=== PATIENT | male | born 2005 | race Caucasian/White ===

== ENCOUNTER 2024-10-10 08:53 | Emergency (ER) | payer BC, SELFPAY ==
[2024-10-10 08:54] VITALS: BP 118/77; PULSE 71; RESP 16; TEMP 36.9; O2SAT 100; BMI 22.3
--- NOTE | 2024-10-10 09:31 | EX.ED.GUMALE ---
HPI History of Present Illness Chief Complaint: Male Pain/Injury Informant: patient Pain Onset: Yesterday Context: Sudden Onset Timing: Continuous Worsened by: Palpation Relieved by: Nothing Narrative Narrative: Patient presents with left testicular pain that began yesterday. Patient describes it as dull and throbbing. Patient states it was there when he woke up yesterday. Patient states it is worse with palpation. Patient states nothing makes it better. Patient denies any urethral discharge or drainage. Patient denies any dysuria, frequency, or hematuria. Patient denies any nausea or vomiting. Patient admits to some mild trauma that occurred this morning. Patient denies any fevers or chills. PFSH PFSH Medical History no medical history no medical history Home Medications ?Medication ?Instructions ?Recorded ?Last Taken ?Type NK 10/10/24 Unknown History Allergy/AdvReac Type Severity Reaction Status Date / Time No Known Allergies Allergy Verified 10/10/24 08:53 Family History no significant family his Surgical History no surgical history no surgical history Social History Smoking Status: Never smoker ROS ROS ED Constitutional Constitutional ED: Denies chills or fever(s) Eyes Eyes: Denies blurry vision or change in vision ENT ENT ED: Denies rhinorrhea or sore throat Cardiovascular Cardiovascular: Denies chest pain or palpitations Respiratory/Chest Respiratory/Chest: Denies cough or dyspnea Gastrointestinal Gastrointestinal: Denies nausea or vomiting Genitourinary Genitourinary ED: Denies dysuria or hematuria Musculoskeletal Musculoskeletal: Reports back pain; Denies neck pain Integumentary Denies abscess or rash Neurologic Neurologic: Denies headache(s) or weakness Allergic/Immunologic Allergic/Immunologic ED: Denies mouth swelling or urticaria EXAM Physical Exam Const Vital Signs: 10/10/24 08:54 10/10/24 10:53 10/10/24 12:00 Temperature 98.5 F Temperature Source Oral Pulse Rate 71 71 73 Respiratory Rate 16 15 15 Blood Pressure 118/77 120/68 116/78 Blood Pressure Mean 90 85 90 Pulse Ox 100 100 100 Oxygen Delivery Method Room Air Positive well nourished and well developed General Appearance ED: well developed and NAD HEENT Reports moist mucous membranes normocephalic and atraumatic Neck supple and no JVD Resp normal respiratory effort and clear to auscultation bilaterally Cardio regular rate and regular rhythm GI non-tender and non-distended Palpation: soft Narrative: There is tenderness to palpation of the left testicle. There is vertical lie. The epididymis is posterior. There is no inguinal hernia palpated. There is no urethral discharge noted. There is no tenderness over the right testicle. Neuro oriented x3, CN's II-XII intact bilaterally, moves all extremities, no focal motor deficits and no sensory deficits noted Sensorium / Orientation: alert Motor Exam: strength 5/5 throughout Psych mental status grossly normal MDM MDM MDM Narrative Medical decision making narrative: Differential diagnosis includes testicular torsion, epididymitis, varicocele, hydrocele, and contusion. Urinalysis will be obtained to assess for urinary tract infection and hematuria. Testicular ultrasound will be obtained to assess for testicular torsion and epididymitis. History & Record Review Additional record(s) reviewed:: No prior records Lab Data Attestation: I reviewed the patient's lab results. Lab results narrative: Urinalysis was reviewed. There is no evidence of urinary tract infection or hematuria. Labs: Laboratory Results - last 24 hr 10/10/24 10:13 Urine Color Yellow Urine Clarity Sl. Cloudy Urine pH 7.0 Ur Specific [place] 1.010 Urine Protein Negative Urine Glucose (UA) Normal Urine Ketones Negative Urine Occult Blood Negative Urine Nitrite Negative Urine Bilirubin Negative Urine Urobilinogen Normal Ur Leukocyte Esterase Negative Urine RBC 0 SEEN Urine WBC 0 SEEN Ur Squamous Epith Cells 0 SEEN Amorphous Sediment 2+ Urine Bacteria 0 SEEN Urine Mucus 0 SEEN Radiography Diagnostic Testing: Clinical Impression(s) from Imaging Studies Testicular Ultrasound 10/10/24 09:48 IMPRESSION: 1. Left scrotal varicocele. 2. No testicular abnormality is seen. Reading Location: [place] [id number] Testicular ultrasound was obtained. Left scrotal varicocele. There is no evidence of testicular torsion. There are no masses noted. There is no evidence of epididymitis. This was interpreted by the radiologist and was also independently reviewed by myself. Treatment and Re-Evaluation Narrative: Patient was advised of this findings. Patient was instructed to wear tight fitting underwear for scrotal support. Patient was instructed to take Tylenol or ibuprofen as needed for pain. Patient was instructed to return if worse in any way. Patient was instructed to follow-up with his primary care physician in 5 to 7 days. Patient understood and was agreeable with the plan. All questions were answered. Discharge Plan Triage Chief Complaint: Male Pain/Injury ED Provider: Ryan Lassiter Dx/Rx/DC Orders Clinical Impression: Left varicocele, Left testicular pain Instructions: Treating Varicocele, What Is a Varicocele Prescriptions: No Action NK Primary Care Provider: Care Physician,No Primary Referrals: Gianna Downing MD [Med Staff - [place] [facility]] - 5-7 Days Care Physician,No Primary [Primary Care Provider] - Print Language: Hungarian Disposition Disposition: Home, Self Care
--- NOTE | 2024-10-10 09:48 | US_ITS ---
PROCEDURE: TESTICULAR WITH ARTERIAL FLOW 10/10/2024 REASON FOR EXAM: LEFT TESTICULAR PAIN TECHNIQUE: TESTICULAR WITH ARTERIAL FLOW COMPARISON: None. FINDINGS: RIGHT testicle: 4.1 x 3.1 x 2.2 cm Homogeneous echotexture. No intratesticular mass. Right epididymis: Unremarkable 5 x 9 x 9 mm. LEFT testicle: 3.9 x 2.7 x 2.1 cm Homogeneous echotexture. No intratesticular mass. Left epididymis: Unremarkable 9 x 9 x 7 mm. Other findings: A left scrotal varicocele is noted. No hydrocele. DOPPLER FINDINGS: Symmetric color doppler blood flow signal at both testes. Normal arterial inflow and venous outflow waveforms at both testes. US/Testicular with Arterial Flow IMPRESSION: 1. Left scrotal varicocele. 2. No testicular abnormality is seen. Reading Location: [place] [id number]
[2024-10-10 10:17] LABS: Mucous, Urine 0 SEEN /hpf (<or=2+); Red Blood Cells-Urine 0 SEEN /hpf (0-5); Squamous Epithelial Cells - UA 0 SEEN /hpf (0-5)
[2024-10-10 10:27] LABS: Color, Urine Yellow (Yellow); Glucose, Dipstick Normal (Normal); Ketone-Dipstick Negative (Negative); Leukocyte Esterase-Dipstick Negative /ul (Negative); Nitrite-Dipstick Negative (Negative); Occult Blood-Urine Negative /ul (Negative); Protein-Dipstick Negative (Negative); Specific Gravity, Urine 1.010 (1.002-1.030); Urine Bilirubin Dipstick Negative (Negative)
[2024-10-10 10:53] VITALS: BP 120/68; PULSE 71; RESP 15; O2SAT 100
[2024-10-10 12:00] VITALS: BP 116/78; PULSE 73; RESP 15; O2SAT 100
[2024-10-10 13:01] VITALS: BP 117/80; PULSE 78; RESP 16; TEMP 36.5; O2SAT 100
== END 2024-10-10 13:04 | disposition home or self-care (01) ==
PROVIDERS: Emergency Provider Emergency Medicine; Visit Provider Emergency Medicine
DX: I86.1 Scrotal varices (principal); N50.812 Left testicular pain
CPT/HCPCS: 76870; 81001; 93976; 99282